=== PATIENT | female | born 1985 | race Caucasian/White ===

== ENCOUNTER 2023-05-12 12:07 | Emergency (ER) | payer SELFPAY ==
[~2023-05-12] VITALS: Ht 157.5 cm; Wt 68.2 kg
[~2023-05-12 12:07] MED LIST: AMOXICILLIN 8751 TAB PO; CLEOCIN HCL300 MG PO; FLEXERIL 1010 MG/TAB PO; IBU600 MG PO; NORCO 325 MG-51 TAB PO; PRENATAL PO
[2023-05-12 12:16] VITALS: TEMP 97.8
[2023-05-12] MEDS ORDERED: Ciprofloxacin 0.3% Ophth Soln 5 ML BOTTLE OP ONE (13:45)
[2023-05-12 14:44] VITALS: BP 119/73; PULSE 71
== END 2023-05-12 14:47 | disposition home or self-care (01) ==
LOC: COL.ER 12:07
DX: S05.02XA Injury of conjunctiva and corneal abrasion without foreign body, left eye, initial encounter (principal); X58.XXXA Exposure to other specified factors, initial encounter